=== PATIENT | female | born 1935 | race Caucasian/White ===

== ENCOUNTER 2017-06-01 08:33 | Emergency (ER) | payer BC ==
[2017-06-01 08:40] VITALS: BMI 28.3
[2017-06-01] MEDS ORDERED: ACETAMINOPHEN 1000 MG/100 ML VIAL (NON FORMULARY) IVPB ONE (09:57)
[2017-06-01] MEDS ORDERED: KETOROLAC TROMETHAMINE 15 MG/ML VIAL IVPUSH ONE (09:57)
--- NOTE | 2017-06-01 09:58 | PDOC ---
History of Present Illness - General Chief Complaint: Back Pain Stated Complaint: BACK PAIN Time Seen by Provider: 06/01/17 09:38 History Source: Patient Exam Limitations: No Limitations - History of Present Illness Initial Comments: 06/01/17 09:52 The patient is an 81 year old female, with a significant past medical history of HTN, hypothyroidism, and Restless leg syndrome, who presents to the emergency department with back pain x 2-3 days. Patient states the pain is right sided mid to lower back and radiates to her left lower back. Pain is 8/10 , sharp, minimally improved with advil, and worse when laying down. Patient denies fever, chills, night sweats, chest pain, sob, n/v/d/c, numbness/tingling/ weakness, stool/urine retention or incontinence, saddle anasthesia. Allergies: NKDA Past surgical history: Spinal fusion Social history: Former smoker PMD - Dr. Hoover 06/01/17 10:02 Past History - Past Medical History Allergies/Adverse Reactions: Allergies Allergy/AdvReac Type Severity Reaction Status Date / Time No Known Allergies Allergy Verified 06/01/17 08:36 Home Medications: Ambulatory Orders Calcium Carbonate [Calci-Chew] 500 mg PO DAILY 06/01/17 Folic Acid/Multivit-Min/Lutein [Multi-Vitamin Gummies] 1 each PO DAILY 06/01/17 Levothyroxine [Synthroid -] 25 mcg PO DAILY 06/01/17 Ropinirole HCl [Requip -] 0.25 mg PO HS 06/01/17 Valsartan/Hydrochlorothiazide [Valsartan-Hctz 80-12.5 mg Tab] 1 each PO DAILY Anemia: No Asthma: No Cancer: No Cardiac Disorders: No CVA: No COPD: No CHF: No Dementia: No Diabetes: No GI Disorders: No Disorders: No HTN: Yes Hypercholesterolemia: No Liver Disease: No Seizures: No Thyroid Disease: No - Surgical History Abdominal Surgery: No Appendectomy: No Cardiac Surgery: No Cholecystectomy: No Lung Surgery: No Neurologic Surgery: No Orthopedic Surgery: Yes (LEFT KNEE REPLACEMENT 2010) - Suicide/Smoking/Psychosocial Hx Smoking History: Former smoker Have you smoked in the past 12 months: No If you are a former smoker, when did you quit?: 1989 Information on smoking cessation initiated: No Hx Alcohol Use: No Drug/Substance Use Hx: No Substance Use Type: None Hx Substance Use Treatment: No Review of Systems - Review of Systems Able to Perform ROS?: Yes Comments:: 06/01/17 09:52 GENERAL/CONSTITUTIONAL: No fever or chills. No weakness. HEAD, EYES, EARS, NOSE AND THROAT: No change in vision. No ear pain or discharge. No sore throat. CARDIOVASCULAR: No chest pain or shortness of breath RESPIRATORY: No cough, wheezing, or hemoptysis. GASTROINTESTINAL: No nausea, vomiting, diarrhea or constipation. GENITOURINARY: No dysuria, frequency, or change in urination. MUSCULOSKELETAL: No joint or muscle swelling or pain. No neck pain, + back pain. SKIN: No rash NEUROLOGIC: No headache, vertigo, loss of consciousness, or change in strength/ sensation. ENDOCRINE: No increased thirst. No abnormal weight change HEMATOLOGIC/LYMPHATIC: No anemia, easy bleeding, or history of blood clots. ALLERGIC/IMMUNOLOGIC: No hives or skin allergy. *Physical Exam - Vital Signs Last Vital Signs Temp Pulse Resp BP Pulse Ox 97.4 F L 67 18 188/82 100 06/01/17 08:36 06/01/17 08:36 06/01/17 08:36 06/01/17 08:36 06/01/17 08:36 - Physical Exam Comments: 06/01/17 09:53 GENERAL: Awake, alert, and fully oriented, in no acute distress HEAD: No signs of trauma, normocephalic, atraumatic EYES: PERRLA, EOMI, sclera anicteric, conjunctiva clear ENT: Auricles normal inspection, hearing grossly normal, nares patent, oropharynx clear without exudates. Moist mucosa NECK: Normal ROM, supple, no lymphadenopathy, JVD, or masses LUNGS: No distress, speaks full sentences, clear to auscultation bilaterally HEART: Regular rate and rhythm, normal S1 and S2, no murmurs, rubs or gallops, peripheral pulses normal and equal bilaterally. ABDOMEN: Soft, nontender, normoactive bowel sounds. No guarding, no rebound. No masses. + mild right lower and left lower back tenderness to palpation EXTREMITIES: Normal inspection, Normal range of motion, no edema. No clubbing or cyanosis. NEUROLOGICAL: Cranial nerves II through XII grossly intact. Normal speech, 5/5 strength b/l, sensation intact b/l, no focal sensorimotor deficits SKIN: Warm, Dry, normal turgor, no rashes or lesions noted. ED Treatment Course - LABORATORY CBC & Chemistry Diagram: 06/01/17 10:57 06/01/17 10:57 Medical Decision Making - Medical Decision Making 06/01/17 10:02 The patient is an 81 year old female, with a significant past medical history of HTN, hypothyroidism, and Restless leg syndrome, who presents to the emergency department with back pain x 2-3 days. Given hx/pe, will order cbc, cmp, UA, urine culture, symptom control 06/01/17 11:40 Labs, UA unremarkable. Patient feeling better. Stable for d/c *DC/Admit/Observation/Transfer Diagnosis at time of Disposition: Back pain Qualifiers: Back pain location: low back pain Chronicity: chronic Back pain laterality: right Sciatica presence: without sciatica Qualified Code(s): M54.5 - Low back pain; M54.5 - Low back pain; G89.29 - Other chronic pain; G89.29 - Other chronic pain - Discharge Dispostion Disposition: HOME Condition at time of disposition: Stable - Patient Instructions Printed Discharge Instructions: DI for Low Back Pain Additional Instructions: Follow up with your primary care provider within 1 week. If you have urine/bowel incontinence, chest pain, shortness of breath, or any new/worsening symptoms please come back to the hospital immediately.
--- NOTE | 2017-06-01 09:58 | PDOC ---
Attending Attestation - Resident Resident Name: Rickie Meyers - ED Attending Attestation I have performed the following: I have examined & evaluated the patient, The case was reviewed & discussed with the resident, I agree w/resident's findings & plan, Exceptions are as noted - HPI HPI: 06/01/17 09:55 81yo F hx HTN, hypothyroid, restless leg syndrome, chronic back pain s/p spinal fusion p/w acute on chronic back pain. Reports pain is the worst in the R thoracic area and radiates to the L thoracic area and then radiates down to the lumbar paraspinal area b/l. Rates pain at an 8/10. Tried advil with minimal imrovement. Worse when laying down. Reports pain became worse after she was moving furniture around the house and carrying all of her plants indoors. Denies LE weakness, numbness, saddle anesthesia, urinary incontinence/ retention. Denies dysuria, frequency, fevers, chills. Denies CP/SOB. Family at the bedside reports that she often has acute exacerbations of back pain after she exerts herself around the house. - Physicial Exam PE: 06/01/17 11:16 GENERAL: Awake, alert, and fully oriented, in no acute distress HEAD: No signs of trauma EYES: PERRLA, EOMI, sclera anicteric, conjunctiva clear ENT: Auricles normal inspection, hearing grossly normal, nares patent, oropharynx clear without exudates. Moist mucosa NECK: Normal ROM, supple, no lymphadenopathy, JVD, or masses LUNGS: Breath sounds equal, clear to auscultation bilaterally. No wheezes, and no crackles HEART: Regular rate and rhythm, normal S1 and S2, no murmurs, rubs or gallops ABDOMEN: Soft, nontender, normoactive bowel sounds. No guarding, no rebound. No masses EXTREMITIES: Normal range of motion, no edema. No clubbing or cyanosis. No cords, erythema, or tenderness BACK: +paraspinal muscular ttp b/l in thoracic and lumbar areas. No deformities , rashes or bony tenderness. NEUROLOGICAL: Normal speech, cranial nerves intact, negative pronator drift, 5/ 5 strength in all 4 extremities, normal sensation to light touch in all 4 extremities, normal cerebellar exam, normal gait, normal reflexes and tone SKIN: Warm, Dry, normal turgor, no rashes or lesions noted. - Medical Decision Making 06/01/17 11:19 81yo F hx chronic back pain p/w acute on chronic back pain after moving furniture in her home and carrying plants. No red flags for back pain as pt has normal strength and sensation in LE, and no urinary symptoms, and no bony tenderness. PT hypertensive on arrival, but on my recheck BP 154/88. Exam with muscular ttp along b/l thoracic and lumbar regions. Will check labs and UA for infection or possible stone, although unlikely given the distribution of the pain. Plan: -labs -UA -toradol -IV tylenol -reassess 06/01/17 14:29 Labs and UA unremarkable. Pt reports improvement in pain, and requests DC home. I discussed the physical exam findings, ancillary test results and final diagnoses with the patient. I answered all of the patient's questions. The patient was satisfied with the care received and felt comfortable with the discharge plan and treatment plan. The patient will call their primary care physician within 24 hours to arrange follow-up and will return to the Emergency Department with any new, persistent or worsening symptoms.
[2017-06-01] MEDS ORDERED: ACETAMINOPHEN INJECTION 100 ML IVPB ONE (10:19)
[2017-06-01] MEDS ORDERED: KETOROLAC TROMETHAMINE 15 MG/ML VIAL ONE (10:20)
[2017-06-01 11:06] LABS: BASOPHIL 1.3 % (0-2.0); EOSINOPHIL 3.6 % (0-4.5); MCH 32.1 pg (25.7-33.7); MCHC 33.3 g/dl (32.0-36.0); MEAN CELL VOLUME 96.6 fl (80-96); MEAN PLT VOLUME 10.7 fl (7.5-11.1); NEUTROPHILS 70.5 % (42.8-82.8); PLATELET COUNT 302 K/MM3 (134-434); RDW 14.9 % (11.6-15.6); WHITE BLOOD COUNT 9.4 K/mm3 (4.0-10.0)
[2017-06-01 11:09] LABS: URINE APPEARANCE CLEAR; URINE BILIRUBIN NEGATIVE (NEGATIVE); URINE BLOOD NEGATIVE (NEGATIVE); URINE COLOR LTYELLOW; URINE GLUCOSE (UA) NEGATIVE (NEGATIVE); URINE KETONE NEGATIVE (NEGATIVE); URINE NITRITE NEGATIVE (NEGATIVE); URINE PROTEIN NEGATIVE (NEGATIVE); URINE UROBILINOGEN NEGATIVE mg/dL (0.2-1.0)
[2017-06-01 11:33] LABS: ALBUMIN 3.8 g/dl (3.4-5.0); ALK PHOS 65 U/L (45-117); ANION GAP 6 (8-16); BILIRUBIN,TOTAL 0.4 mg/dL (0.2-1.0); CALCIUM 9.5 mg/dL (8.5-10.1); CO2 30 mmol/L (21-32); CREATININE 0.7 mg/dL (0.55-1.02); GLUCOSE,RANDOM 90 mg/dL (74-106); SGOT/AST 21 U/L (15-37); SGPT/ALT 22 U/L (12-78); TOT PROT 7.6 g/dl (6.4-8.2)
[2017-06-01 12:15] VITALS: BP 170/79; PULSE 72; TEMP 98.7
[2017-06-01 17:04] LABS: URINE LEUK ESTERASE Negative (NEGATIVE)
== END 2017-06-01 12:23 | disposition home or self-care (01) ==
LOC: JER 08:33
DX: M54.5 Low back pain (principal); E03.9 Hypothyroidism, unspecified
CPT/HCPCS: 36415; 80053; 81003; 85025; 87086; 99282-25

== ENCOUNTER 2017-06-02 17:08 | Emergency (ER) | payer BC ==
[2017-06-02 17:19] VITALS: BP 194/94; PULSE 73; TEMP 98; BMI 28.0
--- NOTE | 2017-06-02 17:53 | PDOC ---
History of Present Illness - General Chief Complaint: Back Pain Stated Complaint: BACK PAIN Time Seen by Provider: 06/02/17 17:51 History Source: Patient Exam Limitations: No Limitations - History of Present Illness Initial Comments: Patient is an 81 year old female with a history of HTN, hypothyroidism, Restless leg syndrome who presented to the ED yesterday with back pain presenting again today with continuation of her back pain unrelieved with Advil or the muscle relaxer (cyclobenzaprine) prescribed by her PCP. Patient has been having 8/10 sharp pain to lower back that radiates to her left lower back for 2- 3 days. The pain is worse when supine. Patient denies fever, chills, shortness of breath, chest pain, nausea, vomiting, diarrhea, constipation, numbness, tingling, weakness, urine or stool retention or incontinence and saddle anasthesia. Past History - Past Medical History Allergies/Adverse Reactions: Allergies Allergy/AdvReac Type Severity Reaction Status Date / Time No Known Allergies Allergy Verified 06/02/17 17:19 Home Medications: Ambulatory Orders Levothyroxine [Synthroid -] 25 mcg PO DAILY 06/01/17 Ropinirole HCl [Requip -] 0.25 mg PO HS 06/01/17 Methocarbamol [Robaxin -] 500 mg PO BID PRN #14 tablet 06/02/17 Oxycodone HCl/Acetaminophen [Percocet 5-325 mg Tablet] 1 tab PO Q4H PRN #20 tablet MDD 4 06/02/17 Hydrochlorothiazide [Hctz -] 12.5 mg PO DAILY 06/04/17 Valsartan [Diovan] 80 mg PO DAILY 06/04/17 Anemia: No Asthma: No Cancer: No Cardiac Disorders: No CVA: No COPD: No CHF: No Dementia: No Diabetes: No GI Disorders: No Disorders: No HTN: Yes Hypercholesterolemia: No Liver Disease: No Seizures: No Thyroid Disease: No - Surgical History Abdominal Surgery: No Appendectomy: No Cardiac Surgery: No Cholecystectomy: No Lung Surgery: No Neurologic Surgery: No Orthopedic Surgery: Yes (LEFT KNEE REPLACEMENT 2010) - Suicide/Smoking/Psychosocial Hx Smoking History: Never smoked Have you smoked in the past 12 months: No If you are a former smoker, when did you quit?: 1989 Information on smoking cessation initiated: No Hx Alcohol Use: No Drug/Substance Use Hx: No Substance Use Type: None Hx Substance Use Treatment: No Review of Systems - Review of Systems Able to Perform ROS?: Yes Comments:: GEN: Denies fever, chills, recent illness HEENTM: Denies sore throat, neck pain, changes in vision, changes in hearing, ear pain, tinnitus Respiratory: Denies cough, wheezing, shortness of breath Cardiac: Denies chest pain, palpitations, lightheadedness, diaphoresis ABD/GI: Denies abdominal pain, nausea, vomiting, diarrhea, constipation : Denies dysuria, burning on urination, increased frequency of urination Musculoskeletal: Endorses back pain; Denies pain and swelling of muscles and joints Integumentary: Denies rashes, bruises Neurological: Denies ALVARADO, weakness, dizziness, loss of consciousness, tingling, numbness Hematologic/Lymphatic: Denies anemia, easy bleeding, history of blood clots. All Other Systems Reviewed and Negative Is the patient limited Occitan proficient: No *Physical Exam - Vital Signs Last Vital Signs Temp Pulse Resp BP Pulse Ox 98.0 F 73 18 194/94 100 06/02/17 17:14 06/02/17 17:14 06/02/17 17:14 06/02/17 17:14 06/02/17 17:14 - Physical Exam Comments: GENERAL: AAOx3, nourished and generally well appearing, Unable to lay flat 2/2 pain, mild distress HEAD: NCAT EYES: PERRLA, EOMI, sclera anicteric, conjunctiva clear ENT: Auricles normal inspection, hearing grossly normal, nares patent, no nasal discharge, no congestion, oropharynx clear without exudates, MMM NECK: supple, normal ROM, no LAD, no JVD, no masses RESP: speaking in full sentences, lungs CTAB, symmetrical chest expansion, no respiratory distress HEART: RRR, normal S1-S2, no MRG, peripheral pulses normal and equal bilaterally ABDOMEN: soft, NTND, nlBSx4, no guarding, no rebound, no masses MUSCULOSKELETAL: lower midline and left-sided paraspinal tenderness around T4/T5 , right-sided paraspinal tenderness around T10. EXTREMITIES: normal inspection, moving all extremities, full ROM, strength 5/5, sensation grossly intact NEUROLOGICAL: CN II-XII grossly intact, normal speech, unable to examine gait, no focal sensorimotor deficits SKIN: warm, dry, normal turgor, no rashes or lesions noted. ED Treatment Course - RADIOLOGY Radiograph Interpretation: Examinations: CT thoracic spine without contrast. CT lumbar spine without contrast. INDICATION: Back pain. TECHNIQUE: Axial CT of the thoracic spine and lumbar spine was performed without intravenous contrast. Coronal and sagittal reconstructions obtained. COMPARISON: No prior CT. Correlation made to the 07/10/2013 thoracic spine x- ray. FINDINGS: There is osseous demineralization. There is sacralization of L5. There are chronic compression deformities of T8 and L4, status post kyphoplasty. There is age indeterminant compression fracture deformity of the T7 vertebral body with mild loss of height and no osseous retropulsion. There is mild focal loss of height of the T11 superior endplate with suggestion of Schmorl's nodes, which may be degenerative. No osseous retropulsion at this level. There is trace degenerative grade 1 anterolisthesis of L3 on L4 measuring 2 mm. Alignment is otherwise maintained. There is multilevel posterior facet hypertrophy with thickening of ligamentum flavum thoracic spine and shallow posterior disc osteophyte complexes. There is no evidence of significant canal stenosis in the thoracic spine. There is mild narrowing of bilateral T7-T8 neural foramina, left T8- T9 neural foramen and moderately severe narrowing of the right T8-T9 neural foramen. There is shallow bulging of the posterior annulus and facet hypertrophy with thickening of ligamentum flavum at L1-L2, L2-L3 and L3-L4, with no significant canal or neural foraminal stenosis. There is circumferential bulging annulus and facet hypertrophy with thickening of ligamentum flavum at L4-L5 resulting in at least mild canal stenosis and mildly narrowing both neural foramina, right more than left. Please note that streak artifact from kyphoplasty at this level somewhat limits evaluation. There are impacted subsegmental airways in bilateral lower lobes with bronchial wall thickening. Mosaic attenuation in the visualized portions of the lungs may be attributed to air trapping. Thyroid gland is heterogenous with subcentimeter nodule posteriorly in the right lobe of the thyroid. There is fatty atrophy of the posterior paraspinal muscles from L2 through S1. The ascending thoracic aorta is not entirely included in the [id number], however , the visualized portions of the ascending thoracic aorta at least ectatic. IMPRESSION: 1. Compression fracture of the T7 vertebral body with mild loss of height. Age indeterminant mild loss of height of the T11 superior endplate, with Schmorl's nodes. These compression fractures are age indeterminant on CT. Please correlate with symptomatology and location of pain. No osseous retropulsion. If clinically warranted, nuclear medicine bone scintigraphy or MRI may be obtained to better assess the age of these fractures. 2. 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 3. Thoracolumbar spondylosis as described above. 4. Bronchial wall thickening in the subsegmental airways of bilateral lower lobes with impacted airways suggestive of nonspecific airways disease/bronchiolitis. 5. Ascending thoracic aorta is not entirely included in the [id number], however, visualized portions appear to be at least ectatic. Medical Decision Making - Medical Decision Making 81 year old female with continuous back pain w/o known trauma that is unrelieved with OTC analgesics and flexeril, no neurological symptoms ddx includes but is not limited to compression fractures, degenerative changes Pain control CT L&T spine monitor and reassess CT: Age indeterminant compression fractures Provide outpatient pain control and referral Patient was discharged by RN prior to entering discharge information. Prescriptions sent to patient's pharmacy *DC/Admit/Observation/Transfer Diagnosis at time of Disposition: discharged - Discharge Dispostion Disposition: HOME Condition at time of disposition: Improved - Prescriptions Prescriptions: Oxycodone HCl/Acetaminophen [Percocet 5-325 mg Tablet] 1 tab PO Q4H PRN #20 tablet MDD 4 PRN Reason: Pain Methocarbamol [Robaxin -] 500 mg PO BID PRN #14 tablet PRN Reason: Muscle Spasms - Referrals Referrals: Didier Joseph MD [Primary Care Provider] -
--- NOTE | 2017-06-02 18:12 | PDOC ---
Attending Attestation - Resident Resident Name: Danis Levine - ED Attending Attestation I have performed the following: I have examined & evaluated the patient, The case was reviewed & discussed with the resident, I agree w/resident's findings & plan, Exceptions are as noted - Physicial Exam PE: GENERAL: Awake, alert, and fully oriented. Appears uncomfortable. HEAD: No signs of trauma EYES: PERRLA, EOMI, sclera anicteric, conjunctiva clear ENT: Auricles normal inspection, hearing grossly normal, nares patent, oropharynx clear without exudates. Moist mucosa NECK: Normal ROM, supple, no lymphadenopathy, JVD, or masses LUNGS: Breath sounds equal, clear to auscultation bilaterally. No wheezes, and no crackles HEART: Regular rate and rhythm, normal S1 and S2, no murmurs, rubs or gallops ABDOMEN: Soft, nontender, normoactive bowel sounds. No guarding, no rebound. No masses EXTREMITIES: Normal range of motion, no edema. No clubbing or cyanosis. No cords, erythema, or tenderness NEUROLOGICAL: Cranial nerves II through XII grossly intact. Normal speech, normal gait SKIN: Warm, Dry, normal turgor, no rashes or lesions noted. SPINE: +Midline tenderness to mid-thoracic spine. +B/L paraspinal soft tissue tenderness with muscle spasm. - Medical Decision Making Patient with return of back pain. Found to have some midline tenderness on exam. Will obtain CT T and L spine to r/o compression fx. DDx also includes kidney stone. Will give percocet and robaxin. <Yoko Yost - Last Filed: 06/02/17 18:57> - HPI HPI: 06/02/17 19:00 81 year old female, with significant past medical history of chronic back pain s /p spinal fusion, HTN, Hypothyroidism, and restless leg syndrome, who presents to the emergency room complaining of severe lower back pain. She was seen here in the ED yesterday for the same complaint for which she was given IV tylenol and Toradol which provided relief. However, the pain suddenly worsened today. She took flexeril, which was prescribed by her doctor and it provided no relief. She is in a wheelchair at present because the bed stretcher is too uncomfortable and she needs a harder surface to lay on. No weakness no numbness. No fever, chills, nausea, vomiting. <Estefania Womack - Last Filed: 06/02/17 19:01>
[2017-06-02] MEDS ORDERED: METHOCARBAMOL 500 MG TABLET PO ONE (18:57)
[2017-06-02] MEDS ORDERED: METHOCARBAMOL 500 MG TABLET ONE (19:02)
[2017-06-02] MEDS ORDERED: KETOROLAC TROMETHAMINE 60 MG/2 ML VIAL IM ONE (22:04)
[2017-06-02] MEDS ORDERED: KETOROLAC TROMETHAMINE 60 MG/2 ML VIAL ONE (22:29)
== END 2017-06-02 22:34 | disposition home or self-care (01) ==
LOC: JER 17:08
PROC: 3E0233Z Introduction of Anti-inflammatory into Muscle, Percutaneous Approach (ICD-10-PCS; principal; 2017-06-02)
DX: M54.5 Low back pain (principal); I10 Essential (primary) hypertension; E03.9 Hypothyroidism, unspecified; G25.81 Restless legs syndrome
CPT/HCPCS: 72128-TC; 72131-TC; 96372; 99282-25

== ENCOUNTER 2017-06-04 15:22 | Inpatient (IN) | payer BC, OTHER ==
--- NOTE | 2017-06-04 15:34 | PDOC ---
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 On prior evaluation she was pending CT to r/o compression fracture, which was subsequently positive for fracture. She states the pain has been severe, worsening, not relieved by OTC medications. Denies f/c, weakness, numbness. No incontinence or retention. Pain was so severe that she developed nausea and vomiting. - Physicial Exam PE: GENERAL: Awake, alert, and fully oriented. In obvious pain. HEAD: No signs of trauma EYES: PERRLA, EOMI, sclera anicteric, conjunctiva clear ENT: Auricles normal inspection, hearing grossly normal, nares patent, oropharynx clear without exudates. Moist mucosa NECK: Normal ROM, supple, no lymphadenopathy, JVD, or masses LUNGS: Breath sounds equal, clear to auscultation bilaterally. No wheezes, and no crackles HEART: Regular rate and rhythm, normal S1 and S2, no murmurs, rubs or gallops ABDOMEN: Soft, nontender, normoactive bowel sounds. No guarding, no rebound. No masses EXTREMITIES: Normal range of motion, no edema. No clubbing or cyanosis. No cords, erythema, or tenderness NEUROLOGICAL: Cranial nerves II through XII grossly intact. Normal speech. Motor and sensation intact. Gait not tested due to severe pain. SKIN: Warm, Dry, normal turgor, no rashes or lesions noted. SPINE: +Midline tenderness in mid-thoracic spine. - Medical Decision Making Patient to be admitted for intractable pain. D/w Dr. Doyle.
--- NOTE | 2017-06-04 15:43 | PDOC ---
History of Present Illness - General Stated Complaint: BACK PAIN History Source: Patient Exam Limitations: No Limitations - History of Present Illness Initial Comments: 06/04/17 15:43 The patient is an 81 year old female, with a significant past medical history of HTN, hypothyroidism, and Restless leg syndrome, who presents to the emergency department with back pain. This is patient's 3rd visit to the ED. She was found to have a T7 compression fracture on CT on 06/02. Patient was seen in Dr. Hoover's clinic today and sent to the ED. Patient feeling significantly worse with diaphoresis, nausea, and vomiting. paitnet has significant c-spine and paraspinal tenderness. Patient denies fever, chest pain, sob, stool/urine retention or incontinence, saddle anasthesia. Allergies: NKDA Past surgical history: Spinal fusion Social history: Former smoker PMD - Dr. Hoover Past History - Past Medical History Allergies/Adverse Reactions: Allergies Allergy/AdvReac Type Severity Reaction Status Date / Time No Known Allergies Allergy Verified 06/02/17 17:19 Home Medications: Ambulatory Orders Calcium Carbonate [Calci-Chew] 500 mg PO DAILY 06/01/17 Folic Acid/Multivit-Min/Lutein [Multi-Vitamin Gummies] 1 each PO DAILY 06/01/17 Levothyroxine [Synthroid -] 25 mcg PO DAILY 06/01/17 Ropinirole HCl [Requip -] 0.25 mg PO HS 06/01/17 Valsartan/Hydrochlorothiazide [Valsartan-Hctz 80-12.5 mg Tab] 1 each PO DAILY RX: Methocarbamol [Robaxin -] 500 mg PO BID PRN #14 tablet 06/02/17 RX: Oxycodone HCl/Acetaminophen [Percocet 5-325 mg Tablet] 1 tab PO Q4H PRN #20 tablet MDD 4 06/02/17 Anemia: No Asthma: No Cancer: No Cardiac Disorders: No CVA: No COPD: No CHF: No Dementia: No Diabetes: No GI Disorders: No Disorders: No HTN: Yes Hypercholesterolemia: No Liver Disease: No Seizures: No Thyroid Disease: No - Surgical History Abdominal Surgery: No Appendectomy: No Cardiac Surgery: No Cholecystectomy: No Lung Surgery: No Neurologic Surgery: No Orthopedic Surgery: Yes (LEFT KNEE REPLACEMENT 2010) - Suicide/Smoking/Psychosocial Hx Smoking History: Never smoked Have you smoked in the past 12 months: No If you are a former smoker, when did you quit?: 1989 Hx Alcohol Use: No Drug/Substance Use Hx: No Substance Use Type: None Hx Substance Use Treatment: No Review of Systems - Review of Systems Able to Perform ROS?: Yes Comments:: 06/04/17 15:55 GENERAL/CONSTITUTIONAL: No fever or chills. No weakness. +Diaphoresis HEAD, EYES, EARS, NOSE AND THROAT: No change in vision. No ear pain or discharge. No sore throat. CARDIOVASCULAR: No chest pain or shortness of breath RESPIRATORY: No cough, wheezing, or hemoptysis. GASTROINTESTINAL: +nausea, +vomiting, No diarrhea or constipation. GENITOURINARY: No dysuria, frequency, or change in urination. MUSCULOSKELETAL: No joint or muscle swelling or pain. No neck pain. +back pain SKIN: No rash NEUROLOGIC: No headache, vertigo, loss of consciousness, or change in strength/ sensation. ENDOCRINE: No increased thirst. No abnormal weight change HEMATOLOGIC/LYMPHATIC: No anemia, easy bleeding, or history of blood clots. ALLERGIC/IMMUNOLOGIC: No hives or skin allergy. *Physical Exam - Vital Signs 06/04/17 15:55 Last Vital Signs Temp Pulse Resp BP Pulse Ox 97.3 F L 61 20 152/80 97 06/04/17 15:47 06/04/17 15:47 06/04/17 15:47 06/04/17 15:47 06/04/17 15:47 - Physical Exam Comments: 06/04/17 15:55 GENERAL: Awake, alert, and fully oriented, in mild distress. HEAD: No signs of trauma, normocephalic, atraumatic EYES: PERRLA, EOMI, sclera anicteric, conjunctiva clear ENT: Auricles normal inspection, hearing grossly normal, nares patent, oropharynx clear without exudates. Moist mucosa NECK: Normal ROM, supple, no lymphadenopathy, JVD, or masses LUNGS: No distress, speaks full sentences, clear to auscultation bilaterally HEART: Regular rate and rhythm, normal S1 and S2, no murmurs, rubs or gallops, peripheral pulses normal and equal bilaterally. ABDOMEN: Soft, nontender, normoactive bowel sounds. No guarding, no rebound. No masses. +Midline, right/left lower paraspinal tenderness to palpation EXTREMITIES: Normal inspection, Normal range of motion, no edema. No clubbing or cyanosis. NEUROLOGICAL: Cranial nerves II through XII grossly intact. Normal speech, 5/5 strength b/l, sensation intact b/l, no focal sensorimotor deficits SKIN: Warm, Dry, normal turgor, no rashes or lesions noted. ED Treatment Course - LABORATORY CBC & Chemistry Diagram: 06/04/17 16:00 06/04/17 16:06 Medical Decision Making - Medical Decision Making 06/04/17 15:48 The patient is an 81 year old female, with a significant past medical history of HTN, hypothyroidism, and Restless leg syndrome, who presents to the emergency department with back pain. Patient's 3rd visit. Patient has a T7 compression fracture Plan: CBC, CMP, symptom control, EKG 06/04/17 17:05 CBC, CMP unremarkable. Patient admitted to Dr. Doyle *DC/Admit/Observation/Transfer Diagnosis at time of Disposition: Back pain Qualifiers: Back pain location: low back pain Chronicity: acute Back pain laterality: bilateral Sciatica presence: without sciatica Qualified Code(s): M54.5 - Low back pain - Discharge Dispostion Admit: Yes - Referrals Referrals: Didier Joseph MD [Primary Care Provider] -
[2017-06-04] MEDS ORDERED: morphine SULFATE 4 MG/ML VIAL IVPUSH ONE (15:45)
[2017-06-04] MEDS ORDERED: ONDANSETRON 4 MG/2 ML VIAL IVPUSH ONE (16:03)
[2017-06-04] MEDS ORDERED: ONDANSETRON *ODT* 4 MG TABLET SL ONE (16:03)
[2017-06-04 16:12] LABS: BASOPHIL 0.6 % (0-2.0); EOSINOPHIL 2.1 % (0-4.5); MCH 32.1 pg (25.7-33.7); MCHC 33.4 g/dl (32.0-36.0); MEAN CELL VOLUME 96.2 fl (80-96); MEAN PLT VOLUME 10.3 fl (7.5-11.1); PLATELET COUNT 268 K/MM3 (134-434); RDW 14.6 % (11.6-15.6); WHITE BLOOD COUNT 9.4 K/mm3 (4.0-10.0)
[2017-06-04] MEDS ORDERED: ACETAMINOPHEN 325 MG TABLET (FP) PO PRN (16:29)
[2017-06-04] MEDS ORDERED: ONDANSETRON 4 MG/2 ML VIAL IVPB PRN (16:29)
--- NOTE | 2017-06-04 16:35 | HP ---
Admitting History and Physical - Primary Care Physician PCP: Didier Joseph - Admission Chief Complaint: My back hurts History of Present Illness: Mrs Hitchcock is a very pleasant 81 year old female who comes in from the office with intractable back pain. She says she started having back pain about 5-6 days ago. It began spontaneously and without trauma. She says the pain is sharp and it is in the R middle of her back. She says the pain has steadily increased over the past 6 days. She says it is now a 10/10 and unbearable. Any type of movement exacerbates it. It is constant. She denies numbness, tingling, paralysis, or incontinence. She is having nausea and vomiting secondary to the pain. She denies fevers, chills, lightheadedness, dizziness, passing out, chest pain, shortness of breath, abdominal pain, diarrhea, constipation, difficulty or pain on urination, or swelling. She presented over the weekend to the ER where a CT scan was performed and a compression fracture was found. She was discharged from the ED with oxycodone for pain control but this was unsuccessful. History Source: Patient Limitations to Obtaining History: No Limitations - Past Medical History Cardiovascular: Yes: HTN Endocrine: Yes: Hypothyroidism - Past Surgical History Past Surgical History: Yes: Joint Replacement (L TKR) - Smoking History Smoking history: Never smoked Have you smoked in the past 12 months: No If you are a former smoker, when did you quit?: 1989 - Alcohol/Substance Use Hx Alcohol Use: No History of Substance Use: reports: None - Social History Usual Living Arrangement: Yes: With Spouse ADL: Independent History of Recent Travel: No Home Medications - Allergies Allergies/Adverse Reactions: Allergies Allergy/AdvReac Type Severity Reaction Status Date / Time No Known Allergies Allergy Verified 06/02/17 17:19 - Home Medications Home Medications: Ambulatory Orders Calcium Carbonate [Calci-Chew] 500 mg PO DAILY 06/01/17 Folic Acid/Multivit-Min/Lutein [Multi-Vitamin Gummies] 1 each PO DAILY 06/01/17 Levothyroxine [Synthroid -] 25 mcg PO DAILY 06/01/17 Ropinirole HCl [Requip -] 0.25 mg PO HS 06/01/17 Valsartan/Hydrochlorothiazide [Valsartan-Hctz 80-12.5 mg Tab] 1 each PO DAILY Methocarbamol [Robaxin -] 500 mg PO BID PRN #14 tablet 06/02/17 Oxycodone HCl/Acetaminophen [Percocet 5-325 mg Tablet] 1 tab PO Q4H PRN #20 tablet MDD 4 06/02/17 Family Disease History - Family Disease History Family Disease History: CA: Brother, Sister (breast) Review of Systems Findings/Remarks: Full review of systems obtained, as per HPI and otherwise negative Physical Examination Vital Signs: Vital Signs Temperature 36.3 C L 06/04/17 15:47 Pulse Rate 61 06/04/17 15:47 Respiratory Rate 20 06/04/17 15:47 Blood Pressure 152/80 06/04/17 15:47 O2 Sat by Pulse Oximetry (%) 97 06/04/17 15:47 Constitutional: Yes: Well Nourished, Mild Distress Eyes: Yes: Conjunctiva Clear, EOM Intact, PERRL HENT: Yes: Atraumatic, Normocephalic Cardiovascular: Yes: Regular Rate and Rhythm. No: Gallop, Murmur, Rub Respiratory: Yes: Regular, CTA Bilaterally. No: Rales, Rhonchi, Wheezes Gastrointestinal: Yes: Normal Bowel Sounds, Soft. No: Distention, Tenderness Extremities: Yes: WNL Edema: No Labs: CBC, BMP 06/04/17 16:00 Imaging - Results Cat Scan: Report Reviewed (from previous ER visit) Problem List - Problems (1) Compression fracture Assessment/Plan: -patient presents with compression fracture -will admit to the hospital for intractable pain -pain control with oxycodone and IV morphine for severe pain -will add calcitonin as well for pain control -consult Dr Garcia who is her pain management physician, may benefit from vertebroplasty -PT consult Code(s): [id number] - (2) Intractable back pain Assessment/Plan: -secondary to compression fracture -failed outpatient therapy -as above Code(s): M54.9 - DORSALGIA, UNSPECIFIED (3) HTN (hypertension) Assessment/Plan: -continue valsartan Code(s): I10 - ESSENTIAL (PRIMARY) HYPERTENSION (4) Hypothyroid Assessment/Plan: -continue synthroid Code(s): E03.9 - HYPOTHYROIDISM, UNSPECIFIED (5) Restless leg Assessment/Plan: -continue requip Code(s): G25.81 - RESTLESS LEGS SYNDROME
[2017-06-04 16:37] LABS: ALBUMIN 3.3 g/dl (3.4-5.0); ALK PHOS 64 U/L (45-117); ANION GAP 6 (8-16); BILIRUBIN,TOTAL 0.3 mg/dL (0.2-1.0); CALCIUM 9.2 mg/dL (8.5-10.1); CO2 31 mmol/L (21-32); CREATININE 0.7 mg/dL (0.55-1.02); GLUCOSE,RANDOM 143 mg/dL (74-106); SGPT/ALT 29 U/L (12-78); TOT PROT 7.2 g/dl (6.4-8.2)
[2017-06-04 16:40] LABS: SGOT/AST 21 U/L (15-37)
[2017-06-04] MEDS: morphine CARPU-JECT 2 MG/1 ML DISP.SYRIN IVPUSH PRN (19:29)
[2017-06-04] MEDS: oxyCODONE HCL 5 MG TABLET PO PRN (19:30)
[2017-06-04] MEDS ORDERED: oxyCODONE HCL 5 MG TABLET ONE (19:32)
[2017-06-04] MEDS ORDERED: ONDANSETRON 4 MG/2 ML VIAL ONE (19:32)
[2017-06-04] MEDS: CALCITONIN - SALMON SYNTHETIC 3.7 ML SPRAY.PUMP NS SCH (21:56)
[2017-06-04 22:20] VITALS: BMI 31.3
[2017-06-04] MEDS: rOPINIRole HCL 0.25 MG TABLET PO SCH (22:59)
[2017-06-04] MEDS: DOCUSATE SODIUM 100 MG CAPSULE (FP) PO SCH (22:59)
[2017-06-04] MEDS: CALCIUM 500MG/VIT-D 200 UNITS COMBO TABLET (FP) PO SCH (22:59)
[2017-06-05] MEDS ORDERED: SODIUM CHLORIDE 1,000 ML IV SCH (00:01)
[2017-06-05] MEDS: morphine CARPU-JECT 2 MG/1 ML DISP.SYRIN IVPUSH PRN ×3 (00:13→11:19)
[2017-06-05] MEDS: LEVOTHYROXINE NA 25 MCG TABLET (FP) PO SCH (06:29)
[2017-06-05 07:42] LABS: BASOPHIL 0.9 % (0-2.0); EOSINOPHIL 2.8 % (0-4.5); MCH 32.2 pg (25.7-33.7); MCHC 33.2 g/dl (32.0-36.0); MEAN CELL VOLUME 97.2 fl (80-96); MEAN PLT VOLUME 10.3 fl (7.5-11.1); NEUTROPHILS 65.7 % (42.8-82.8); PLATELET COUNT 266 K/MM3 (134-434); RDW 14.6 % (11.6-15.6)
[2017-06-05 08:11] LABS: INR 1.04 (0.82-1.09); PROTHROMBIN TIME (PATIENT) 11.7 SEC (9.98-11.88)
[2017-06-05 08:23] LABS: ANION GAP 5 (8-16); CO2 32 mmol/L (21-32); GLUCOSE,RANDOM 83 mg/dL (74-106); MAGNESIUM 2.1 mg/dL (1.8-2.4)
[2017-06-05 08:25] LABS: CREATININE 0.7 mg/dL (0.55-1.02); PHOSPHOROUS 3.9 mg/dL (2.5-4.9)
[2017-06-05] MEDS: oxyCODONE HCL 5 MG TABLET PO PRN (08:36)
--- NOTE | 2017-06-05 09:01 | CONSULT ---
Consult Consult Specialty:: pain medicine Referred by:: dr fonseca Reason for Consultation:: back pain - History of Present Illness Chief Complaint: back pain History of Present Illness: Mrs Hitchcock is a very pleasant 81 year old female who comes in from the office with intractable back pain. She says she started having back pain about 5-6 days ago. It began spontaneously and without trauma. She says the pain is sharp and it is in the R middle of her back. She says the pain has steadily increased over the past [address] scan shows multiple compression fx's - age indeterminate - Past Medical History Cardio/Vascular: Yes: HTN Endocrine: Yes: Hypothyroidism - Past Surgical History Past Surgical History: Yes: Joint Replacement (L TKR) - Alcohol/Substance Use Hx Alcohol Use: No History of Substance Use: reports: None - Smoking History Smoking history: Former smoker Have you smoked in the past 12 months: No If you are a former smoker, when did you quit?: 1989 - Social History ADL: Independent History of Recent Travel: No Home Medications - Allergies Allergies/Adverse Reactions: Allergies Allergy/AdvReac Type Severity Reaction Status Date / Time No Known Allergies Allergy Verified 06/02/17 17:19 - Home Medications Home Medications: Ambulatory Orders Levothyroxine [Synthroid -] 25 mcg PO DAILY 06/01/17 Ropinirole HCl [Requip -] 0.25 mg PO HS 06/01/17 Methocarbamol [Robaxin -] 500 mg PO BID PRN #14 tablet 06/02/17 Oxycodone HCl/Acetaminophen [Percocet 5-325 mg Tablet] 1 tab PO Q4H PRN #20 tablet MDD 4 06/02/17 Hydrochlorothiazide [Hctz -] 12.5 mg PO DAILY 06/04/17 Valsartan [Diovan] 80 mg PO DAILY 06/04/17 Family Disease History - Family Disease History Family Disease History: CA: Brother, Sister (breast) Physical Exam Vital Signs: Vital Signs Temperature 98.2 F 06/05/17 06:00 Pulse Rate 76 06/05/17 06:00 Respiratory Rate 20 06/05/17 06:00 Blood Pressure 149/82 06/05/17 06:00 O2 Sat by Pulse Oximetry (%) 97 06/04/17 22:24 Musculoskeletal: Yes: Back Pain Labs: CBC, BMP 06/05/17 07:00 06/05/17 07:00 Assessment/Plan Acute lower back pain may be secondary to acute compression fractures 1. Bone scan to rule out/in acute fx's 2.tylenol prn pain 3. oxycodone prn pain 4. will follow up after BONE SCAN
[2017-06-05] MEDS ORDERED: PATIENT'S OWN MEDICATION (NON-FORMULARY) (Valsartan/Hydrochlorothiazide [Valsartan-Hctz 80 PO SCH (10:00)
[2017-06-05] MEDS ORDERED: PT OWN MED DRAWER 7, Y5N ONE (10:00)
[2017-06-05] MEDS: DOCUSATE SODIUM 100 MG CAPSULE (FP) PO SCH ×2 (10:01→21:26)
[2017-06-05] MEDS: VALSARTAN 80 MG TABLET (UD) PO SCH (10:01)
[2017-06-05] MEDS: HYDROCHLOROTHIAZIDE 12.5 MG CAPSULE (FP) PO SCH (10:01)
[2017-06-05] MEDS: POLYETHYLENE GLYCOL 3350 119 GM BTL PO SCH (10:02)
[2017-06-05] MEDS: CALCITONIN - SALMON SYNTHETIC 3.7 ML SPRAY.PUMP NS SCH (10:06)
[2017-06-05] MEDS: CALCIUM 500MG/VIT-D 200 UNITS COMBO TABLET (FP) PO SCH ×2 (11:21→22:33)
--- NOTE | 2017-06-05 11:40 | PN ---
Progress Note, Physician Chief Complaint: Mrs Hitchcock complains of pain in her back. No cp, sob, n/v. - Current Medication List Current Medications: Active Medications Acetaminophen (Tylenol -) 650 mg PO Q4H PRN PRN Reason: FEVER OR PAIN Calcitonin (Miacalcin [place] -) 200 units NS DAILY [facility] Last Admin: 06/05/17 10:06 Dose: 200 units Calcium Carbonate/Cholecalciferol (Os-Dusty 500+D -) 1 tab PO BID@1100,2300 [facility] Last Admin: 06/05/17 11:21 Dose: 1 tab Docusate Sodium (Colace -) 100 mg PO BID [facility] Last Admin: 06/05/17 10:01 Dose: 100 mg Hydrochlorothiazide (Hctz -) 12.5 mg PO DAILY [facility] Last Admin: 06/05/17 10:01 Dose: 12.5 mg Levothyroxine Sodium (Synthroid -) 25 mcg PO DAILY@0700 [facility] Last Admin: 06/05/17 06:29 Dose: 25 mcg Morphine Sulfate (Morphine Injection -) 2 mg IVPUSH Q4H PRN PRN Reason: PAIN LEVEL 6-10 Last Admin: 06/05/17 11:19 Dose: 2 mg Ondansetron HCl (Zofran Injection) 4 mg IVPB Q6H PRN PRN Reason: NAUSEA Last Admin: 06/04/17 19:29 Dose: 4 mg Oxycodone HCl (Roxicodone -) 5 mg PO Q4H PRN PRN Reason: PAIN Last Admin: 06/05/17 08:36 Dose: 5 mg Polyethylene Glycol (Miralax (For Daily Use) -) 17 gm PO DAILY [facility] Last Admin: 06/05/17 10:02 Dose: 17 gm Ropinirole HCl (Requip -) 0.25 mg PO HS [facility] Last Admin: 06/04/17 22:59 Dose: 0.25 mg Valsartan (Diovan -) 80 mg PO DAILY [facility] Last Admin: 06/05/17 10:01 Dose: 80 mg - Objective Vital Signs: Vital Signs Temperature 36.8 C 06/05/17 06:00 Pulse Rate 76 06/05/17 06:00 Respiratory Rate 20 06/05/17 06:00 Blood Pressure 149/82 06/05/17 06:00 O2 Sat by Pulse Oximetry (%) 97 06/04/17 22:24 Constitutional: Yes: Well Nourished, No Distress, Calm Cardiovascular: Yes: Regular Rate and Rhythm. No: Gallop, Murmur, Rub Respiratory: Yes: Regular, CTA Bilaterally. No: Rales, Rhonchi, Wheezes Gastrointestinal: Yes: Normal Bowel Sounds, Soft. No: Distention, Tenderness Extremities: Yes: WNL Edema: No Labs: CBC, BMP 06/05/17 07:00 06/05/17 07:00 INR, PTT INR 1.04 (0.82-1.09) 06/05/17 06:00 Problem List - Problems (1) Compression fracture Code(s): [id number] - (2) Intractable back pain Code(s): M54.9 - DORSALGIA, UNSPECIFIED (3) HTN (hypertension) Code(s): I10 - ESSENTIAL (PRIMARY) HYPERTENSION (4) Hypothyroid Code(s): E03.9 - HYPOTHYROIDISM, UNSPECIFIED (5) Restless leg Code(s): G25.81 - RESTLESS LEGS SYNDROME Assessment/Plan (1) Compression fracture Assessment/Plan: -appreciate pain management assistance -planning for bone scan today -continue pain control with narcotics -continue calcitonin -continue calcium and vitamin D Code(s): [id number] - (2) Intractable back pain Assessment/Plan: -secondary to compression fracture -failed outpatient therapy -as above Code(s): M54.9 - DORSALGIA, UNSPECIFIED (3) HTN (hypertension) Assessment/Plan: -continue valsartan HCT Code(s): I10 - ESSENTIAL (PRIMARY) HYPERTENSION (4) Hypothyroid Assessment/Plan: -continue synthroid Code(s): E03.9 - HYPOTHYROIDISM, UNSPECIFIED (5) Restless leg Assessment/Plan: -continue requip Code(s): G25.81 - RESTLESS LEGS SYNDROME (6) Thyroid nodule -found on CT scan -thyroid ultrasound ordered
[2017-06-05] MEDS ORDERED: morphine CARPU-JECT 2 MG/1 ML DISP.SYRIN IVPUSH PRN (12:34)
[2017-06-05] MEDS ORDERED: HYDROmorphone HCL CARPU-JECT 1 MG/1 ML DISP.SYRIN IVPB PRN (14:16)
[2017-06-05] MEDS ORDERED: HYDROmorphone HCL CARPU-JECT 1 MG/1 ML DISP.SYRIN IVPB ONE (14:16)
[2017-06-05] MEDS: rOPINIRole HCL 0.25 MG TABLET PO SCH (21:26)
[2017-06-05] MEDS: HYDROmorphone HCL CARPU-JECT 2 MG/1 ML DISP.SYRIN IVPB PRN (22:26)
--- NOTE | 2017-06-05 22:30 | EKG ---
Test Reason : Blood Pressure : / mmHG Vent. Rate : 056 BPM Atrial Rate : 056 BPM P-R Int : 218 ms QRS Dur : 094 ms QT Int : 472 ms P-R-T Axes : 055 -10 053 degrees QTc Int : 455 ms SINUS BRADYCARDIA WITH 1ST DEGREE A-V BLOCK OTHERWISE NORMAL ECG NO PREVIOUS ECGS AVAILABLE NO CLINICAL INFORMATION IS AVAILABLE REPEAT EKG IF CLINICALLY INDICATED Confirmed by CASSIE COLE MD ([id number]) on 06/05/2017 10:30:00 PM Referred By: Confirmed By:CASSIE COLE MD
[2017-06-06] MEDS: HYDROmorphone HCL CARPU-JECT 2 MG/1 ML DISP.SYRIN IVPB PRN (02:40)
[2017-06-06] MEDS: LEVOTHYROXINE NA 25 MCG TABLET (FP) PO SCH (06:07)
[2017-06-06] MEDS: oxyCODONE HCL 5 MG TABLET PO PRN (06:37)
[2017-06-06] MEDS: DOCUSATE SODIUM 100 MG CAPSULE (FP) PO SCH ×2 (10:22→22:02)
[2017-06-06] MEDS: POLYETHYLENE GLYCOL 3350 119 GM BTL PO SCH (10:22)
[2017-06-06] MEDS ORDERED: PT OWN MED DRAWER 7, Y5N ONE ×2 (10:26→21:54)
[2017-06-06] MEDS: VALSARTAN 80 MG TABLET (UD) PO SCH (10:27)
[2017-06-06] MEDS: HYDROCHLOROTHIAZIDE 12.5 MG CAPSULE (FP) PO SCH (10:28)
[2017-06-06] MEDS: CALCITONIN - SALMON SYNTHETIC 3.7 ML SPRAY.PUMP NS SCH (10:28)
[2017-06-06] MEDS ORDERED: SODIUM CHLORIDE 1,000 ML IV SCH ×2 (12:30→19:59)
[2017-06-06] MEDS ORDERED: HYDROmorphone HCL CARPU-JECT 2 MG/1 ML DISP.SYRIN IVPB PRN (12:32)
--- NOTE | 2017-06-06 12:32 | PN ---
Progress Note, Physician Chief Complaint: Mrs Hitchcock complains of pain in her back. No cp, sob, n/v. - Current Medication List Current Medications: Active Medications Acetaminophen (Tylenol -) 650 mg PO Q4H PRN PRN Reason: FEVER OR PAIN Calcitonin (Miacalcin [place] -) 200 units NS DAILY [facility] Last Admin: 06/06/17 10:28 Dose: 200 units Calcium Carbonate/Cholecalciferol (Os-Dusty 500+D -) 1 tab PO BID@1100,2300 [facility] Last Admin: 06/05/17 22:33 Dose: 1 tab Docusate Sodium (Colace -) 100 mg PO BID [facility] Last Admin: 06/06/17 10:22 Dose: Not Given Hydrochlorothiazide (Hctz -) 12.5 mg PO DAILY [facility] Last Admin: 06/06/17 10:28 Dose: 12.5 mg Hydromorphone HCl (Dilaudid Injection -) 0.5 mg IVPB Q4H PRN PRN Reason: PAIN Last Admin: 06/06/17 02:40 Dose: 0.5 mg Sodium Chloride (Normal Saline -) 1,000 mls @ 50 mls/hr IV ASDIR [facility] Stop: 06/07/17 12:25 Levothyroxine Sodium (Synthroid -) 25 mcg PO DAILY@0700 [facility] Last Admin: 06/06/17 06:07 Dose: 25 mcg Ondansetron HCl (Zofran Injection) 4 mg IVPB Q6H PRN PRN Reason: NAUSEA Last Admin: 06/04/17 19:29 Dose: 4 mg Oxycodone HCl (Roxicodone -) 5 mg PO Q4H PRN PRN Reason: PAIN Last Admin: 06/06/17 06:37 Dose: 5 mg Polyethylene Glycol (Miralax (For Daily Use) -) 17 gm PO DAILY [facility] Last Admin: 06/06/17 10:22 Dose: Not Given Ropinirole HCl (Requip -) 0.25 mg PO HS [facility] Last Admin: 06/05/17 21:26 Dose: 0.25 mg Valsartan (Diovan -) 80 mg PO DAILY [facility] Last Admin: 06/06/17 10:27 Dose: 80 mg - Objective Vital Signs: Vital Signs Temperature 36.9 C 06/06/17 09:34 Pulse Rate 100 H 06/06/17 09:34 Respiratory Rate 20 10/18/17 09:34 Blood Pressure 124/85 06/06/17 09:34 O2 Sat by Pulse Oximetry (%) 96 06/06/17 09:00 Constitutional: Yes: Well Nourished, No Distress, Calm Cardiovascular: Yes: Regular Rate and Rhythm. No: Gallop, Murmur, Rub Respiratory: Yes: Regular, CTA Bilaterally. No: Rales, Rhonchi, Wheezes Gastrointestinal: Yes: Normal Bowel Sounds, Soft. No: Distention, Tenderness Extremities: Yes: WNL Edema: No Labs: CBC, BMP 06/05/17 07:00 06/05/17 07:00 INR, PTT INR 1.04 (0.82-1.09) 06/05/17 06:00 Problem List - Problems (1) Compression fracture Code(s): [id number] - (2) Intractable back pain Code(s): M54.9 - DORSALGIA, UNSPECIFIED (3) HTN (hypertension) Code(s): I10 - ESSENTIAL (PRIMARY) HYPERTENSION (4) Hypothyroid Code(s): E03.9 - HYPOTHYROIDISM, UNSPECIFIED (5) Restless leg Code(s): G25.81 - RESTLESS LEGS SYNDROME Assessment/Plan (1) Compression fracture Assessment/Plan: -appreciate pain management assistance -planning for kyphoplasty today Code(s): [id number] - (2) Intractable back pain Assessment/Plan: -secondary to compression fracture -failed outpatient therapy -placed on dilaudid and oxycodone -continue PT Code(s): M54.9 - DORSALGIA, UNSPECIFIED (3) HTN (hypertension) Assessment/Plan: -continue valsartan HCT Code(s): I10 - ESSENTIAL (PRIMARY) HYPERTENSION (4) Hypothyroid Assessment/Plan: -continue synthroid Code(s): E03.9 - HYPOTHYROIDISM, UNSPECIFIED (5) Restless leg Assessment/Plan: -continue requip Code(s): G25.81 - RESTLESS LEGS SYNDROME (6) Thyroid nodule -found on CT scan -outpatient ultrasound Dispo -will need SNF placement
[2017-06-06] MEDS: CALCIUM 500MG/VIT-D 200 UNITS COMBO TABLET (FP) PO SCH ×2 (12:49→22:06)
[2017-06-06] MEDS ORDERED: ceFAZolin SODIUM 1 GM VIAL IVPB ONE (16:48)
[2017-06-06] MEDS ORDERED: BUPIVACAINE HCL/PF 0.25% (2.5MG/ML) 10 ML VIAL ONE (18:24)
[2017-06-06] MEDS ORDERED: MIDAZOLAM HCL 2 MG/2 ML SINGLE DOSE VIAL ONE (18:46)
[2017-06-06] MEDS ORDERED: PROPOFOL 20 ML ONE (18:59)
[2017-06-06] MEDS ORDERED: LIDOCAINE HCL/PF 2% SDV 5ML VIAL ONE (18:59)
[2017-06-06] MEDS ORDERED: BUPIVACAINE HCL/PF 0.25% (2.5MG/ML) 10 ML VIAL IJ ONE ×2 (19:03)
--- NOTE | 2017-06-06 19:31 | PN ---
Progress Note (short form) - Note Progress Note: Status post T7 kyphoplasty NO complications Leave bandage for 5-7 days Patient can see me as outpatient.
[2017-06-06] MEDS ORDERED: PROMETHAZINE HCL 25 MG/1 ML VIAL IVPUSH PRN (19:34)
[2017-06-06] MEDS ORDERED: ONDANSETRON 4 MG/2 ML VIAL IVPUSH PRN (19:34)
[2017-06-06] MEDS ORDERED: LACTATED RINGERS SOLUTION 1,000 ML IV SCH (19:45)
[2017-06-06] MEDS ORDERED: ONDANSETRON 4 MG/2 ML VIAL IVPB PRN (19:59)
--- NOTE | 2017-06-06 21:00 | OPR ---
DATE 06-06-2017 OPERATIVE REPORT Surgeon: Rick Garcia MD Preoperative Diagnosis: 1. Acute Pathologic Compression Fracture at T7 2. Primary osteoporosis Postoperative Diagnosis: Same Anesthesia: MAC sedation with IV propofol Procedure: 1.KYPHON Balloon Kyphoplasty at T7 level 2.Insertion of KYPHON bone cement under low pressure at T7 Biopsy was not performed of the vertebral body Complications: None Blood Loss: Minimal Assessment: Mrs Hitchcock is a 81-year-old who has had severe back pain that began approximately 6 weeks ago and is debilitating. The patient has been unresponsive to nonoperative treatment modalities including bed rest and analgesics. The patient presents with and is on medication therapy for htn. Radiographic imaging including CT scan thoracic spine confirms acute compression fracture of the T7 vertebral body. The procedure was explained to the patient. The risks and benefits were explained including but not limited to bleeding, infection, nerve injury, headaches, and worsening of pain. All questions have been answered and informed consent granted. PROCEDURE: The patient was brought to the operating room and MAC sedation was performed. The patient was positioned prone on the OR table. The back was prepped and draped. The image intensifier (C-arm) was brought into position and the left T7 pedicle was identified and marked with a skin marker. In view of the collapse, a transpedicular approach to the vertebral body was appropriate. A spinal 22Gauge needle was inserted to the pedicle of the vertebral body. After negative aspiration, 8cc 0.25% Marcaine was injected at each pedicle. A stab incision was made 1cm lateral and superior to pedicle. A 10--gauge trochar was advanced through the pedicle to the junction of the pedicle and vertebral body. Positioning was confirmed on the AP and lateral plane. Once the trochar was at the junction of the pedicle and the vertebral body, a lateral image was taken to insure that the cannula was positioned approximately 1cm past the vertebral body wall.. After completing the entry into the vertebral body, a 15 mm inflatable bone tamp was inserted through the cannula and advanced under fluoroscopic guidance into the vertebral body near the anterior cortex. The radiopaque marker bands on the one tamp were identified using AP and lateral images. Once the bone tamp was in position, it was inflated to 0.5 cc and 50 psi. Expansion of the bone tamps was done sequentially in increments of 0.25 to 0.5 cc of contrast, with careful attention being paid to the inflation pressures and balloon position. The inflation was monitored with AP and lateral imaging. The final balloon volume was 1.5 cc. There was no breach of the lateral wall or anterior cortex of the vertebral body. Direct reduction of the fracture was achieved, end plate movement was noted and approximately 5 mm of height mandaen was achieved. Under fluoroscopic imaging, and the use of the bone void fillers, internal fixation was achieved through a low-pressure injection of KYPHON bone cement. The cavity was filled with a total volume of 2 cc.. Once the bone cement had hardened, the cannulas were then removed. Throughout the procedure, AP and lateral imaging monitored positioning. Post-procedure, all incisions were closed with steristrips. The patient was kept in the prone position for approximately 30 minutes post cement injection. The patient was then turned supine, monitored briefly and returned to the recovery room. The patient was moving both lower extremities at this time. Throughout the procedure, there were no intraoperative complications. Estimated blood loss was minimal. A spine xray was performed post procedure which showed no cement extrusion. Rick Garcia M.D. Board Certified [employer].
[2017-06-06] MEDS: rOPINIRole HCL 0.25 MG TABLET PO SCH (22:02)
[2017-06-07] MEDS: HYDROmorphone HCL CARPU-JECT 2 MG/1 ML DISP.SYRIN IVPB PRN (01:25)
[2017-06-07] MEDS: LEVOTHYROXINE NA 25 MCG TABLET (FP) PO SCH (06:30)
[2017-06-07] MEDS ORDERED: PT OWN MED DRAWER 7, Y5N ONE ×4 (10:11→21:10)
[2017-06-07] MEDS: DOCUSATE SODIUM 100 MG CAPSULE (FP) PO SCH ×2 (10:37→21:34)
[2017-06-07] MEDS: VALSARTAN 80 MG TABLET (UD) PO SCH (10:37)
[2017-06-07] MEDS: HYDROCHLOROTHIAZIDE 12.5 MG CAPSULE (FP) PO SCH (10:37)
[2017-06-07] MEDS: CALCIUM 500MG/VIT-D 200 UNITS COMBO TABLET (FP) PO SCH ×2 (10:37→22:08)
[2017-06-07] MEDS: CALCITONIN - SALMON SYNTHETIC 3.7 ML SPRAY.PUMP NS SCH (10:38)
[2017-06-07] MEDS: POLYETHYLENE GLYCOL 3350 119 GM BTL PO SCH (10:38)
[2017-06-07] MEDS: ACETAMINOPHEN 325 MG TABLET (FP) PO PRN ×2 (10:41→17:52)
[2017-06-07] MEDS: oxyCODONE HCL 5 MG TABLET PO PRN ×2 (10:42→17:50)
--- NOTE | 2017-06-07 11:35 | PN ---
Progress Note (short form) - Note Progress Note: Anesthesia postop note 81y/o F s/p GA for kyphoplasty POD#1, vss, aaox3, pain much improved No anesthesia complications.
--- NOTE | 2017-06-07 12:20 | PN ---
Progress Note, Physician Chief Complaint: Mrs Hitchcock says pain is much better controlled. No cp, sob, n/v. - Current Medication List Current Medications: Active Medications Acetaminophen (Tylenol -) 650 mg PO Q4H PRN PRN Reason: FEVER OR PAIN Last Admin: 06/07/17 10:41 Dose: 650 mg Calcitonin (Miacalcin [place] -) 200 units NS DAILY [facility] Last Admin: 06/07/17 10:38 Dose: 200 units Calcium Carbonate/Cholecalciferol (Os-Dusty 500+D -) 1 tab PO BID@1100,2300 [facility] Last Admin: 06/07/17 10:37 Dose: 1 tab Docusate Sodium (Colace -) 100 mg PO BID [facility] Last Admin: 06/07/17 10:37 Dose: 100 mg Fentanyl (Sublimaze Injection -) 50 mcg IVPUSH [id number] PRN PRN Reason: PAIN Stop: 06/09/17 19:35 Hydrochlorothiazide (Hctz -) 12.5 mg PO DAILY [facility] Last Admin: 06/07/17 10:37 Dose: 12.5 mg Hydromorphone HCl (Dilaudid Injection -) 0.5 mg IVPB Q3H PRN PRN Reason: PAIN Last Admin: 06/07/17 01:25 Dose: 0.5 mg Sodium Chloride (Normal Saline -) 1,000 mls @ 50 mls/hr IV ASDIR YAJAIRA Stop: 06/07/17 12:25 Last Admin: 06/06/17 20:34 Dose: 50 mls/hr Levothyroxine Sodium (Synthroid -) 25 mcg PO DAILY@0700 [facility] Last Admin: 06/07/17 06:30 Dose: 25 mcg Ondansetron HCl (Zofran Injection) 4 mg IVPB Q6H PRN PRN Reason: NAUSEA Oxycodone HCl (Roxicodone -) 5 mg PO Q4H PRN PRN Reason: PAIN Last Admin: 06/07/17 10:42 Dose: 5 mg Polyethylene Glycol (Miralax (For Daily Use) -) 17 gm PO DAILY [facility] Last Admin: 06/07/17 10:38 Dose: 17 grams Ropinirole HCl (Requip -) 0.25 mg PO HS [facility] Last Admin: 06/06/17 22:02 Dose: 0.25 mg Valsartan (Diovan -) 80 mg PO DAILY [facility] Last Admin: 06/07/17 10:37 Dose: 80 mg - Objective Vital Signs: Vital Signs Temperature 36.8 C 06/07/17 09:02 Pulse Rate 70 06/07/17 09:02 Respiratory Rate 20 06/07/17 09:02 Blood Pressure 132/64 06/07/17 09:02 O2 Sat by Pulse Oximetry (%) 94 L 06/07/17 09:00 Constitutional: Yes: Well Nourished, No Distress, Calm Cardiovascular: Yes: Regular Rate and Rhythm. No: Gallop, Murmur, Rub Respiratory: Yes: Regular, CTA Bilaterally. No: Rales, Rhonchi, Wheezes Gastrointestinal: Yes: Normal Bowel Sounds, Soft. No: Distention, Tenderness Extremities: Yes: WNL Edema: No Labs: CBC, BMP 06/05/17 07:00 06/05/17 07:00 INR, PTT INR 1.04 (0.82-1.09) 06/05/17 06:00 Problem List - Problems (1) Compression fracture Code(s): [id number] - (2) Intractable back pain Code(s): M54.9 - DORSALGIA, UNSPECIFIED (3) HTN (hypertension) Code(s): I10 - ESSENTIAL (PRIMARY) HYPERTENSION (4) Hypothyroid Code(s): E03.9 - HYPOTHYROIDISM, UNSPECIFIED (5) Restless leg Code(s): G25.81 - RESTLESS LEGS SYNDROME Assessment/Plan (1) Compression fracture Assessment/Plan: -s/p kyphoplasty with good response -PT to see Code(s): [id number] - (2) Intractable back pain Assessment/Plan: -much improved -continue PT and pain control Code(s): M54.9 - DORSALGIA, UNSPECIFIED (3) HTN (hypertension) Assessment/Plan: -continue valsartan HCT Code(s): I10 - ESSENTIAL (PRIMARY) HYPERTENSION (4) Hypothyroid Assessment/Plan: -continue synthroid Code(s): E03.9 - HYPOTHYROIDISM, UNSPECIFIED (5) Restless leg Assessment/Plan: -continue requip Code(s): G25.81 - RESTLESS LEGS SYNDROME (6) Thyroid nodule -found on CT scan -outpatient ultrasound Dispo -will need SNF placement, plan for discharge tomorrow
[2017-06-07] MEDS: rOPINIRole HCL 0.25 MG TABLET PO SCH (21:37)
[2017-06-08] MEDS: ACETAMINOPHEN 325 MG TABLET (FP) PO PRN ×3 (03:27→15:21)
[2017-06-08] MEDS: oxyCODONE HCL 5 MG TABLET PO PRN ×3 (03:27→15:21)
[2017-06-08] MEDS: LEVOTHYROXINE NA 25 MCG TABLET (FP) PO SCH (06:44)
[2017-06-08] MEDS ORDERED: PT OWN MED DRAWER 7, Y5N ONE (09:53)
[2017-06-08] MEDS: HYDROCHLOROTHIAZIDE 12.5 MG CAPSULE (FP) PO SCH (10:44)
[2017-06-08] MEDS: VALSARTAN 80 MG TABLET (UD) PO SCH (10:44)
[2017-06-08] MEDS: DOCUSATE SODIUM 100 MG CAPSULE (FP) PO SCH (10:45)
[2017-06-08] MEDS: CALCITONIN - SALMON SYNTHETIC 3.7 ML SPRAY.PUMP NS SCH (10:45)
[2017-06-08] MEDS: POLYETHYLENE GLYCOL 3350 119 GM BTL PO SCH (10:47)
[2017-06-08] MEDS: CALCIUM 500MG/VIT-D 200 UNITS COMBO TABLET (FP) PO SCH (11:30)
--- NOTE | 2017-06-08 13:25 | PN ---
Progress Note, Physician - Current Medication List Current Medications: Active Medications Acetaminophen (Tylenol -) 650 mg PO Q4H PRN PRN Reason: FEVER OR PAIN Last Admin: 06/08/17 08:14 Dose: 650 mg Calcitonin (Miacalcin [place] -) 200 units NS DAILY [facility] Last Admin: 06/08/17 10:45 Dose: 200 units Calcium Carbonate/Cholecalciferol (Os-Dusty 500+D -) 1 tab PO BID@1100,2300 [facility] Last Admin: 06/08/17 11:30 Dose: 1 tab Docusate Sodium (Colace -) 100 mg PO BID [facility] Last Admin: 06/08/17 10:45 Dose: 100 mg Fentanyl (Sublimaze Injection -) 50 mcg IVPUSH [id number] PRN PRN Reason: PAIN Stop: 06/09/17 19:35 Hydrochlorothiazide (Hctz -) 12.5 mg PO DAILY [facility] Last Admin: 06/08/17 10:44 Dose: 12.5 mg Hydromorphone HCl (Dilaudid Injection -) 0.5 mg IVPB Q3H PRN PRN Reason: PAIN Last Admin: 06/07/17 01:25 Dose: 0.5 mg Levothyroxine Sodium (Synthroid -) 25 mcg PO DAILY@0700 [facility] Last Admin: 06/08/17 06:44 Dose: 25 mcg Ondansetron HCl (Zofran Injection) 4 mg IVPB Q6H PRN PRN Reason: NAUSEA Oxycodone HCl (Roxicodone -) 5 mg PO Q4H PRN PRN Reason: PAIN Last Admin: 06/08/17 08:13 Dose: 5 mg Polyethylene Glycol (Miralax (For Daily Use) -) 17 gm PO DAILY [facility] Last Admin: 06/08/17 10:47 Dose: 17 grams Ropinirole HCl (Requip -) 0.25 mg PO HS [facility] Last Admin: 06/07/17 21:37 Dose: 0.25 mg Valsartan (Diovan -) 80 mg PO DAILY [facility] Last Admin: 06/08/17 10:44 Dose: 80 mg - Objective Vital Signs: Vital Signs Temperature 36.6 C 06/08/17 10:44 Pulse Rate 60 06/08/17 10:44 Respiratory Rate 20 06/08/17 10:44 Blood Pressure 147/75 06/08/17 10:44 O2 Sat by Pulse Oximetry (%) 94 L 06/08/17 09:00 Labs: CBC, BMP 06/05/17 07:00 06/05/17 07:00 INR, PTT INR 1.04 (0.82-1.09) 06/05/17 06:00 Problem List - Problems (1) Compression fracture Code(s): [id number] - (2) Intractable back pain Code(s): M54.9 - DORSALGIA, UNSPECIFIED (3) HTN (hypertension) Code(s): I10 - ESSENTIAL (PRIMARY) HYPERTENSION (4) Hypothyroid Code(s): E03.9 - HYPOTHYROIDISM, UNSPECIFIED (5) Restless leg Code(s): G25.81 - RESTLESS LEGS SYNDROME
--- NOTE | 2017-06-08 13:35 | DS ---
Physical Examination Vital Signs: Vital Signs Temperature 36.6 C 06/08/17 10:44 Pulse Rate 60 06/08/17 10:44 Respiratory Rate 20 06/08/17 10:44 Blood Pressure 147/75 06/08/17 10:44 O2 Sat by Pulse Oximetry (%) 94 L 06/08/17 09:00 Constitutional: Yes: Well Nourished, No Distress, Calm Cardiovascular: Yes: Regular Rate and Rhythm. No: Gallop, Murmur, Rub Respiratory: Yes: Regular, CTA Bilaterally. No: Rales, Rhonchi, Wheezes Gastrointestinal: Yes: Normal Bowel Sounds, Soft. No: Distention, Tenderness Extremities: Yes: WNL Edema: No Labs: CBC, BMP 06/05/17 07:00 06/05/17 07:00 Discharge Summary Reason For Visit: BACK PAIN Current Active Problems Back pain (Acute) Compression fracture (Acute) HTN (hypertension) (Acute) Hypothyroid (Acute) Intractable back pain (Acute) Restless leg (Acute) Hospital Course: (1) Compression fracture Code(s): [id number] - (2) Intractable back pain Code(s): M54.9 - DORSALGIA, UNSPECIFIED (3) HTN (hypertension) Code(s): I10 - ESSENTIAL (PRIMARY) HYPERTENSION (4) Hypothyroid Code(s): E03.9 - HYPOTHYROIDISM, UNSPECIFIED (5) Restless leg Code(s): G25.81 - RESTLESS LEGS SYNDROME (6) Thyroid nodule Mrs Hitchcock is a pleasant 81 year old female who comes in with intractable back pain secondary to compression fracture that failed outpatient therapy. She was admitted and underwent kyphoplasty. Her pain improved significantly. However she is still unable to walk far distances. She is safe for discharge to SNF. She should have outpatient thyroid ultrasound for possible nodule found on previous CT scan. 31 minutes spent in preparation of this discharge Condition: Good - Instructions Diet, Activity, Other Instructions: regular diet. Up with assistance, further activity per PT at SNF Referrals: Didier Joseph MD [Primary Care Provider] - Disposition: NURSING HOME FACILITY - Home Medications Comprehensive Discharge Medication List: Ambulatory Orders Levothyroxine [Synthroid -] 25 mcg PO DAILY 06/01/17 Ropinirole HCl [Requip -] 0.25 mg PO HS 06/01/17 Methocarbamol [Robaxin -] 500 mg PO BID PRN #14 tablet 06/02/17 Oxycodone HCl/Acetaminophen [Percocet 5-325 mg Tablet] 1 tab PO Q4H PRN #20 tablet MDD 4 06/02/17 Hydrochlorothiazide [Hctz -] 12.5 mg PO DAILY 06/04/17 Valsartan [Diovan] 80 mg PO DAILY 06/04/17
[2017-06-08 14:04] VITALS: BP 165/87; PULSE 66; TEMP 98.2
[2017-06-08] MEDS: HYDROmorphone HCL CARPU-JECT 2 MG/1 ML DISP.SYRIN IVPB PRN (18:09)
== END 2017-06-08 18:41 | DRG 517 ==
LOC: JER 15:22 → JERBED 16:12 → J6S 21:01
PROVIDERS: ADMIT Internal Medicine; ATTEND Internal Medicine
PROC: 0PU43JZ Supplement Thoracic Vertebra with Synthetic Substitute, Percutaneous Approach (ICD-10-PCS; 2017-06-06)
PROC: 0PS43ZZ Reposition Thoracic Vertebra, Percutaneous Approach (ICD-10-PCS; principal; 2017-06-06 18:30)
DX: M80.88XA Other osteoporosis with current pathological fracture, vertebra(e), initial encounter for fracture (principal); I10 Essential (primary) hypertension; E03.9 Hypothyroidism, unspecified; E66.8 Other obesity; Z68.31 Body mass index [BMI] 31.0-31.9, adult; E04.1 Nontoxic single thyroid nodule; G25.81 Restless legs syndrome; Z87.891 Personal history of nicotine dependence; Z96.652 Presence of left artificial knee joint
CPT/HCPCS: 36415; 71020-TC; 76000-TC; 78306-TC; 80048; 80053; 83735; 84100; 85025; 85610; 93005; 93010; 94010; 94760; 97116-GP; 97161-GP; 99283-25; A9503